=== PATIENT | female | born 1985 | race American Indian/Alaskan Native ===

== ENCOUNTER 2017-10-14 18:04 | Emergency (ER) | payer MEDICAID ==
[2017-10-14 18:45] VITALS: BP 108/63
[2017-10-14 20:19] LABS: HCG Qualitative,Urine Negative (Negative)
[2017-10-14 20:20] LABS: Bacteria,Urine 1+ /HPF (Negative); Bilirubin,Urine NEG (Negative); Blood,Urine MOD (Negative); Color,Urine Yellow (Yellow); Mucus,Urine FEW /HPF; Protein,Urine <15 mg/dL mg/dL (Negative); Urobilinogen,Urine < 2.0 mg/dL (<2.0)
== END 2017-10-14 20:15 | disposition left against medical advice (07) ==
LOC: ED 18:04
DX: R19.05 Periumbilic swelling, mass or lump (principal); Z53.21 Procedure and treatment not carried out due to patient leaving prior to being seen by health care provider
CPT/HCPCS: 81001; 81025

== ENCOUNTER 2017-10-15 17:17 | Emergency (ER) | payer MEDICAID ==
--- NOTE | 2017-10-15 18:28 | Emergency Department Report ---
ED General Adult HPI - General Chief complaint: Abdominal Pain Stated complaint: SLIGHT BLEEDING/NAVEL IRRITATION Time Seen by Provider: 10/15/17 18:08 Source: patient Mode of arrival: Ambulatory Limitations: No Limitations - History of Present Illness Initial comments: Patient is a 32-year-old female who's had ventral hernia surgery last year who states for the last month her stomach is bloated. Patient denies any nausea vomiting diarrhea at this time. Patient also states that she has some associated off and on vaginal bleeding. Patient states that she is able to push the herniated area back in with ease. Severity scale (0 -10): 8 - Related Data Previous Rx's Medication Instructions Recorded Last Taken Type HYDROcodone/ACETAMINOPHEN [[place] 1 - 2 each PO Q4H PRN #30 tablet 12/21/16 Unknown Rx 5-325 Tablet] Docusate Sodium [Colace] 100 mg PO BID #20 capsule 10/15/17 Unknown Rx Allergies Allergy/AdvReac Type Severity Reaction Status Date / Time morphine Allergy Rash Verified 12/18/16 14:48 ED Review of Systems ROS: Stated complaint: SLIGHT BLEEDING/NAVEL IRRITATION Other details as noted in HPI Comment: All other systems reviewed and negative ED Past Medical Hx - Past Medical History Hx HIV: No Additional medical history: Vaginal delivery x 4 - Surgical History Additional Surgical History: umbilical hernia,2 c-sections, tubiligation - Social History Smoking Status: Never Smoker Substance Use Type: None - Medications Home Medications: Home Medications Medication Instructions Recorded Confirmed Last Taken Type HYDROcodone/ACETAMINOPHEN [[place] 1 - 2 each PO Q4H PRN #30 tablet 12/21/16 Unknown Rx 5-325 Tablet] Docusate Sodium [Colace] 100 mg PO BID #20 capsule 10/15/17 Unknown Rx ED Physical Exam - General Limitations: No Limitations General appearance: alert, in no apparent distress - Head Head exam: Present: atraumatic, normocephalic - Eye Eye exam: Present: normal appearance - ENT ENT exam: Present: mucous membranes moist - Neck Neck exam: Present: normal inspection - Respiratory Respiratory exam: Present: normal lung sounds bilaterally. Absent: respiratory distress - Cardiovascular Cardiovascular Exam: Present: regular rate, normal rhythm. Absent: systolic murmur, diastolic murmur, rubs, gallop - GI/Abdominal GI/Abdominal exam: Present: soft, distended (patient has a midline scar on the abdomen and also has a reducible hernia present in the ventral abdomen.), normal bowel sounds - Extremities Exam Extremities exam: Present: normal inspection - Back Exam Back exam: Present: normal inspection - Neurological Exam Neurological exam: Present: alert, oriented X3 - Psychiatric Psychiatric exam: Present: normal affect, normal mood - Skin Skin exam: Present: warm, dry, intact, normal color. Absent: rash ED Course Vital Signs 10/15/17 17:52 Temperature 98.4 F Pulse Rate 81 Respiratory 16 Rate Blood Pressure 111/66 [Left] O2 Sat by Pulse 99 Oximetry ED Medical Decision Making - Medical Decision Making Patient need to see her surgeon for evaluation of the ventral hernia returning. Patient also was also suggested that she see a physician general internal medicine for her abnormal bleeding. Critical care attestation.: If time is entered above; I have spent that time in minutes in the direct care of this critically ill patient, excluding procedure time. ED Disposition Clinical Impression: Ventral hernia Qualifiers: Obstruction and gangrene presence: without obstruction or gangrene Qualified Code(s): K43.9 - Ventral hernia without obstruction or gangrene Disposition: DC-01 TO HOME OR SELFCARE Is pt being admited?: No Does the pt Need Aspirin: No Condition: Stable Instructions: Ventral Hernia (ED) Additional Instructions: We see the surgeon that performed her surgery regarding the hernia returning. Prescriptions: Docusate Sodium [Colace] 100 mg PO BID #20 capsule Referrals: PRIMARY CARE, [Primary Care Provider] - 3-5 Days
[2017-10-15 18:41] VITALS: BP 110/61
== END 2017-10-15 18:40 | disposition home or self-care (01) ==
LOC: ED 17:17
DX: K43.9 Ventral hernia without obstruction or gangrene (principal); Z98.51 Tubal ligation status; Z88.6 Allergy status to analgesic agent
CPT/HCPCS: 99282